=== PATIENT | female | born 1950 | race African-American/Black ===

== ENCOUNTER 2019-04-18 05:34 | Emergency (ER) | payer SELFPAY ==
[~2019-04-18] VITALS: Ht 172.7 cm; Wt 104.0 kg
[2019-04-18] MEDS ORDERED: TRAMADOL 50MG TABLET PO ONE ×2 (06:30→13:30)
[2019-04-18] MEDS ORDERED: PERMETHRIN 5% CREAM 60GM TOP ONE (07:15)
[2019-04-18 13:43] VITALS: BP 135/63
== END 2019-04-18 14:00 | disposition home or self-care (01) ==
LOC: ER 05:34
DX: S09.8XXA Other specified injuries of head, initial encounter (principal); M54.5 Low back pain; I10 Essential (primary) hypertension; B85.2 Pediculosis, unspecified; W01.0XXA Fall on same level from slipping, tripping and stumbling without subsequent striking against object, initial encounter; Y93.9 Activity, unspecified; Y92.9 Unspecified place or not applicable
CPT/HCPCS: 71045; 71250; 72100; 99284